=== PATIENT | male | born 1955 | race Caucasian/White ===

== ENCOUNTER 2021-05-02 02:11 | Emergency (ER) | payer OTHER ==
[~2021-05-02] VITALS: Ht 256.5 cm; Wt 108.9 kg
--- NOTE | ~2021-05-02 | EMS ---
[facility] [address] [place] [address] EMS Patient Care Report Name: JOSE M SERRANO Room #: DEP DIONNA Mei#: [id number] Admission: 05/02/21 Attend Phys: Discharge: 05/02/21 Date of : 59 Report #: [id number] THIS REPORT FOR: //name// Report Transmitted: 05/02/2021 06:35 EMS Care Summary [place], [place]/[facility] Incident [id number] @ 05/02/2021 01:[address] [facility] [address] [place] [id number] Patient JOSE M SERRANO Male, 65 Years 1955 Patient Address [address] [place], [place] [id number] Patient History Chronic Obstructive Pulmonary Disease (COPD),Thyroid Disease, Patient Allergies No known allergies, Patient Medications Levothyroxine, Trazodone, Atorvastatin, Chief Complaint ABDOMINAL PAIN Disposition Transported No Lights/[place] Dispatch Reason Hemorrhage/Laceration Transported To [facility] Narrative MEDIC 41 DISPATCHED TO A RESIDENCE ON A HEMORRHAGE. PATIENT COMPLAINED OF ABDOMINAL PAIN IN LOWER QUADRANTS AND STATED HE HAD VOMITED ABOUT 30 MINUTES PRIOR TO EMS ARRIVAL WELL PASSED OUT IN HIS BED. [facility] [address] [place] [address] EMS Patient Care Report Name: JOSE M SERRANO Room #: DEP ER Sigifredo#: [id number] Admission: 05/02/21 Attend Phys: Discharge: 05/02/21 Date of : 59 Report #: [id number] PATIENT DENIES DIFFICULTY BREATHING. UPON EMS ARRIVAL PATIENT WAS FOUND WAITING OUTSIDE. PATIENT WAS ASSISTED INTO THE AMBULANCE WHERE HE WAS SEATED ON THE STRETCHER AND BELTED IN. VITALS WERE TAKEN AND MONITORED EN ROUTE TO [facility] WHERE PATIENT WAS ASSISTED INTO ER BED 2 AND CARE WAS TRANSFERRED TO RECEIVING RN. Initial Vitals @01:55P: 78,R: 16,BP: 140/90,Pain: 6/10,GCS: 15,Glucose: 89,SpO2: 95,Revised Trauma: 12, @01:57P: 80,R: 16,BP: 138/88,Pain: 6/10,GCS: 15,SpO2: 95,Revised Trauma: 12, Assessments @01:58MENTAL:Event Oriented,Place Oriented,Person Oriented,Time Oriented,SKIN:HEENT:Head/Face: No Abnormalities,Neck/Airway: No Abnormalities,LUNG SOUNDS:General: Nausea,Right Lower: Other,Left Lower: Other,General: Vomiting,ABDOMEN:General: Nausea,Right Lower: Other,Left Lower: Other,General: Vomiting,PELVIS//GI:EXTREMITIES:Left Arm: No Abnormalities,Right Arm: No Abnormalities,Left Leg: No Abnormalities,Right Leg: No Abnormalities,PULSE:NEURO:No Abnormalities, Impression Abdominal Pain Procedures @01:58ALS AssessmentResponse: UnchangedSucceeded@01:58BLS AssessmentResponse: Unchanged Timeline 01:41,Call Received :41,Dispatch Notified 01:42,Dispatched 01:43,En Route 01:48,On Scene 01:49,At Patient 01:55,BP: 140/90 M,PULSE: 78,RR: 16 R,SPO2: 95 Ox,ETCO2: ,B,PAIN: 6,GCS: 15, 01:55,Depart Scene 01:57,BP: 138/88 M,PULSE: 80,RR: 16 R,SPO2: 95 Ox,ETCO2: ,BG: ,PAIN: 6,GCS: 15, 01:58,ALS Assessment,Response: UnchangedSucceeded, 01:58,BLS Assessment,Response: Unchanged 02:07,At Destination 02:23,Call Closed Disclaimer v1.1 Copyright 2020 [employer] [facility] [address] [place] [address] EMS Patient Care Report Name: JOSE M SERRANO Room #: DEP ER Michelle.#: [id number] Admission: 05/02/21 Attend Phys: Discharge: 05/02/21 Date of : 59 Report #: [id number] This EMS Care Summary contains data elements from the applicable legal record (which may be displayed differently). It is designed to provide pertinent information for the following purposes: continuity of care, clinical quality, and state data reporting. The complete legal record is available to ED staff and administrators of the receiving hospital in [employer]'s Patient Tracker. All data is provided "as is."
[2021-05-02 02:42] LABS: ABSOLUTE NEUTROPHILS 5.6 thou/uL (1.4-8.2); BASOPHILS 1.2 % (0.0-2.0); EOSINOPHILS 4.2 % (0.0-3.0); HEMOGLOBIN 14.6 gm/dL (14.0-18.0); LYMPHOCYTES 30.6 % (24.0-44.0); MCH 26.8 pg (26.0-34.0); MCHC 33.2 g/dL (28.0-37.0); MONOCYTES 7.1 % (1.0-8.0); PLATELET COUNT 243 thou/uL (150-400); POLYS 56.9 % (36.0-66.0); RBC 5.43 mil/uL (4.50-6.00); RDW 15.5 % (10.5-14.5); WBC 9.8 thou/uL (4.0-11.0)
[2021-05-02 02:50] LABS: CALCIUM 8.8 mg/dL (8.5-10.1); CREATININE 0.9 mg/dL (0.7-1.3); POTASSIUM 4.3 mmol/L (3.5-5.1)
[2021-05-02 02:56] LABS: ALBUMIN 3.6 g/dL (3.4-5.0); TOTAL BILIRUBIN 0.2 mg/dL (0.2-1.0); TOTAL PROTEIN 7.5 g/dL (6.4-8.2)
[2021-05-02 03:53] LABS: INR 1.08; PROTIME 11.7 Seconds (10.5-12.1)
[2021-05-02] MEDS ORDERED: NAPROSYN500 MG PO (04:28)
[2021-05-02] MEDS ORDERED: ONDANSETRON HCL4 M2 PO (04:28)
[2021-05-02 05:10] VITALS: BP 132/76
[2021-05-02] MEDS ORDERED: LEVO-T100 MCG PO (05:12)
== END 2021-05-02 04:40 | disposition home or self-care (01) ==
LOC: ER 02:11
PROVIDERS: Emergency Medicine
DX: K52.89 Other specified noninfective gastroenteritis and colitis (principal); F17.210 Nicotine dependence, cigarettes, uncomplicated; Z90.89 Acquired absence of other organs